=== PATIENT | female | born 1990 | race Caucasian/White ===

== ENCOUNTER 2016-11-21 13:42 | Outpatient (CLI) | payer MEDICAID, OTHER ==
[~2016-11-21] VITALS: Ht 154.9 cm; Wt 85.5 kg
[2016-11-21 14:12] VITALS: Ht 154.9 cm; Wt 85.5 kg
[2016-11-21] MEDS ORDERED: CALC600T11 PO (14:12)
[2016-11-21] MEDS ORDERED: PRENAT PO (14:12)
[2016-11-21 14:13] VITALS: BP 118/64; PULSE 88; RESP 18
--- NOTE | 2016-11-21 14:53 | RADRPT ---
PROCEDURE: US OB biophysical profile. CLINICAL INDICATION: decreased movements, status post fall TECHNIQUE: Multiple sonographic images of the pelvis were obtained. The images were reviewed on a PACS workstation. COMPARISON: No prior studies are available for comparison. FINDINGS: There is a single viable intrauterine gestation. Cardiac activity is present with 148 beats per min [place]. There is a vertex presentation. The placenta is anterior. There is no evidence of placental abruption. There is a normal amount of amniotic fluid with an MALORIE = 9.3 cm. Biophysical profile: movement 2/2 tone 2/2. breathing 2/2 MALORIE 2/2 Total 03/26 RPTAT: AA . IMPRESSION: Normal biophysical profile. . .Eyal Neumann MD, Date Time Electronically viewed and signed by .Eyal Neumann MD, MD on 11/21/2016 14:52 .S/
--- NOTE | 2016-11-21 15:12 | TRIAGE ---
OB Triage Datetime Report Generated by CPN: 11/21/2016 15:11 Datetime: 11/21/2016 14:37 Stage of : OB Triage Maternal Assessment Level of Consciousness: Fully Conscious Labor Evaluation Frequency: NONE Monitor Mode: External Resting Tone [place]: Relaxed Heart Rate FHR Baseline Rate: 145 Monitor Mode: External US Variability: Moderate 6-25 bpm Accelerations: 15X15 Decelerations: None Pain Assessment Pain Scale: 0 Pain Presence: None/Denies Pain Type: N/A Pain Goal: 3 Vaginal Exam Membrane Status: Intact Vaginal Bleeding: None Datetime: 11/21/2016 14:36 Comments: monitors off for ordered U/S. Datetime: 11/21/2016 14:10 Assessment Type: Triage Maternal Assessment Level of Consciousness: Fully Conscious DTR's/Clonus: DTRs 2+; No Clonus Headache: Denies Blurred Vision: No Respiratory Effort: Unlabored; Regular Rhythm; Equal Expansion Breath Sounds, Left: Clear and Equal Breath Sounds, Right: Clear and Equal Nausea/Vomiting: Denies RUQ Epigastric Pain: Denies Lower Extremities Edema: None Degree: None Upper Extremities Edema: None Degree: None Facial Edema: None Fall Risk Assessment History of Falling: (0) No Secondary Diagnosis: (0) No Ambulatory Aid: (0) Bedrest/Nurse Assist IV Therapy: (0) No Gait: (0) Normal/Bedrest/Immobile Mental Status: (0) Oriented to Own Ability Fall Score: 0 Fall Risk Score Definition: No Risk: No action required Datetime: 11/21/2016 14:08 Time of Arrival: 11/21/2016 13:32 EGA: 26.2 Arrived By: Ambulatory Arrived From: Office Chief Complaint: pt sent in to eval for fall 2 days ago. Movement: Present Contractions: Denies/Absent Rupture of Membranes: Denies Vaginal Bleeding: None Vaginal Discharge: Denies Recent Sexual Intercouse: Denies Abdominal Trauma: Fall Patient Complaints: None Time Provider Notified: 11/21/2016 13:45 Provider Notified: KATHY Initial Plan: EFM, BPP Datetime: 11/21/2016 14:05 Monitor Mode: External Monitor Mode: External US
--- NOTE | 2016-11-21 15:33 | QN ---
Documentation Comment 26-year-old with IUP at 26 weeks and 2 days with care with Dr. Chowdhury presented status post fall 2 days ago. Patient was about to ride the car however the car moved and the patient landed on her side to the ground. She denied any direct trauma to her abdomen. She denied any vaginal bleeding, uterine contractions or decreased movement. This incident happened 2 days ago. She was seen in the office today and was referred to labor and delivery for evaluation. Patient currently does not have any complaint. Physical examination: General appearance: Alert and oriented 4 patient does not appear to be in any acute distress. Abdomen: Soft, gravid, nontender, no rebound tenderness, fundal height consistent with gestational age NST: Category 1 and appropriate for gestational age BPP: 88 No contraction the monitor seen Patient had been observed in triage for a couple hours. No complaint. No bleeding. Physical examination abdominal exam completely benign. PROCEDURE: US OB biophysical profile. CLINICAL INDICATION: decreased movements, status post fall TECHNIQUE: Multiple sonographic images of the pelvis were obtained. The images were reviewed on a PACS workstation. COMPARISON: No prior studies are available for comparison. FINDINGS: There is a single viable intrauterine gestation. Cardiac activity is present with 148 beats per minute. There is a vertex presentation. The placenta is anterior. There is no evidence of placental abruption. There is a normal amount of amniotic fluid with an MALORIE = 9.3 cm. Biophysical profile: movement 2/2 tone 2/2. breathing 2/2 MALORIE 2/2 Total 03/26 RPTAT: AA . IMPRESSION: Normal biophysical profile. . Assessment: IUP at 26 weeks and 2 days Status post fall 2 days ago No evidence of abruption, pre-problem, labor heart tones category 1. testing reassuring. BPP 03/26 Patient discharged home with a strict labor precaution and kick count and abruption precaution next Patient was advised to return to labor and delivery if she has any vaginal bleeding, leakage of fluid, contraction, decreased movement or any other concern immediately to triage She was also advised to be seen in her clinic that she has care in 2 days for follow-up. Patient verbalized understanding all above discussion and had no questions. ANJUM MICHEL MD Nov 21, 2016 15:33
== END 2016-11-21 15:22 | disposition home or self-care (01) ==
LOC: OBT 13:42 → L-D 13:45 → OBT 15:22
PROVIDERS: ATTEND Obstetrics & Gynecology
DX: O36.8120 Decreased fetal movements, second trimester, not applicable or unspecified (principal); W18.39XA Other fall on same level, initial encounter; Y92.410 Unspecified street and highway as the place of occurrence of the external cause; Z3A.26 26 weeks gestation of pregnancy
CPT/HCPCS: 76818; Z7500; G0463

== ENCOUNTER 2017-02-07 13:14 | Outpatient (CLI) | payer MEDICAID, OTHER ==
[~2017-02-07] VITALS: Ht 165.1 cm; Wt 88.4 kg
[~2017-02-07 13:14] MED LIST: CALC600T11 PO; PRENAT PO
[2017-02-07 13:26] VITALS: BP 122/75; RESP 16; Ht 165.1 cm; Wt 88.4 kg
[2017-02-07 14:06] LABS: ADD SCAN DIFF NO
[2017-02-07 14:09] LABS: ABNORMAL IP MESSAGE 1; BASOPHILS % 0.2 % (0.0-2.0); EOSINOPHILS # 0.2 10^3/ul (0.0-0.5); EOSINOPHILS % 2.2 % (0.0-7.0); HEMATOCRIT 33.2 % (37.0-47.0); HEMOGLOBIN 11.1 g/dl (12.0-16.0); LYMPHOCYTES # 2.3 10^3/ul (0.8-2.9); LYMPHOCYTES % 28.6 % (15.0-51.0); MEAN CORPUSCULAR HEMOGLOBIN 28.2 pg (29.0-33.0); MEAN CORPUSCULAR HGB CONC 33.4 g/dl (32.0-37.0); MEAN CORPUSCULAR VOLUME 84.5 fl (82.0-101.0); MONOCYTE # 0.7 10^3/ul (0.3-0.9); MONOCYTES % 8.9 % (0.0-11.0); NEUTROPHIL # 4.8 10^3/ul (1.6-7.5); NEUTROPHILS % 59.2 % (39.0-77.0); PLATELET COUNT 135 10^3/UL (140-415); RED BLOOD COUNT 3.93 10^6/ul (4.20-5.40); RED CELL DISTRIBUTION WIDTH 13.4 % (11.5-14.5); WHITE BLOOD COUNT 8.2 10^3/ul (4.8-10.8)
--- NOTE | 2017-02-07 14:13 | RADRPT ---
PROCEDURE: US biophysical profile. CLINICAL INDICATION: induced hypertension. TECHNIQUE: Multiple sonographic images of the uterus were obtained. The images were revi ewed on a PACS workstation. COMPARISON: 11/21/2016. FINDINGS: There is a single live intrauterine gestation. heart rate is 159 beats per minute. The position is cephalic. The placenta is anterior grade II with no abruption or previa. The MALORIE is 9.4 cm. (Normal = 5-20 cm.) Breathing Movement: 2 Gross Body Movement: 2 Tone: 2 Qualitative Amniotic Fluid Volume: 2 TOTAL: 8 IMPRESSION: 1. The biophysical score is 8/8. RPTAT: QQ .Nelson Briones MD, MD Date Time Electronically viewed and signed by .Nelson Briones MD, MD on 02/07/2017 14:12 .R/
[2017-02-07 14:22] LABS: ADD UMIC YES; UR ASCORBIC ACID NEGATIVE (NEGATIVE); UR BILIRUBIN (Dip) NEGATIVE (NEGATIVE); UR BLOOD (Dip) NEGATIVE (NEGATIVE); UR CLARITY SLIGHTLY CLOUDY (CLEAR); UR COLOR YELLOW (YELLOW); UR GLUCOSE (Dip) NEGATIVE (NEGATIVE); UR KETONES (Dip) NEGATIVE (NEGATIVE); UR LEUKOCYTE ESTERASE (Dip) 1+ Leu/ul (NEGATIVE); UR NITRITE (Dip) NEGATIVE (NEGATIVE); UR RBC 1 /HPF (0-5); UR SPECIFIC GRAVITY (Dip) 1.014 (1.003-1.030); UR SQUAMOUS EPITHELIAL CELL FEW /HPF (FEW); UR TOTAL PROTEIN (Dip) NEGATIVE (NEGATIVE); UR UROBILINOGEN (Dip) NEGATIVE (NEGATIVE)
[2017-02-07 14:30] LABS: ALBUMIN 3.8 g/dl (3.3-4.9); ALBUMIN/GLOBULIN RATIO 1.18; CALCIUM 9.1 mg/dl (8.4-10.2); CREATININE 0.64 mg/dl (0.44-1.00); POTASSIUM 4.5 mmol/L (3.5-5.1)
--- NOTE | 2017-02-07 14:54 | PN ---
Triage Information Date/Time 02/07/2017 Weeks of Gestation 37.3 : 1 Para: 0 Diabetes: none Hypertention: none Additional information sent in to R/O PIH because of 2 + proteinuria in clinic Objective Vital Signs Date Time Temp Pulse Resp B/P Pulse Ox O2 Delivery O2 Flow Rate FiO2 02/07/17 13:26 98.2 16 122/75 Room Air Heart Rate: 140's Heart Rate Comments FHTs R Exam long/ closed Results/Medications Result Diagram: 02/07/17 1355 02/07/17 1355 Results 24 hrs Laboratory Tests Test 02/07/17 13:55 White Blood Count 8.2 Red Blood Count 3.93 L Hemoglobin 11.1 L Hematocrit 33.2 L Mean Corpuscular Volume 84.5 Mean Corpuscular Hemoglobin 28.2 L Mean Corpuscular Hemoglobin Concent 33.4 Red Cell Distribution Width 13.4 Platelet Count 135 L Mean Platelet Volume 14.0 H Neutrophils % 59.2 Lymphocytes % 28.6 Monocytes % 8.9 Eosinophils % 2.2 Basophils % 0.2 Nucleated Red Blood Cells % 0.0 Neutrophils # 4.8 Lymphocytes # 2.3 Monocytes # 0.7 Eosinophils # 0.2 Basophils # 0.0 Nucleated Red Blood Cells # 0.0 Urine Color YELLOW Urine Clarity SLIGHTLY CLOUDY A Urine pH 7.0 Urine Specific [place] 1.014 Urine Ketones NEGATIVE Urine Nitrite NEGATIVE Urine Bilirubin NEGATIVE Urine Urobilinogen NEGATIVE Urine Leukocyte Esterase 1+ H Urine Microscopic RBC 1 Urine Microscopic WBC 3 Urine Squamous Epithelial Cells FEW Urine Hemoglobin NEGATIVE Urine Glucose NEGATIVE Urine Total Protein NEGATIVE Sodium Level 135 Potassium Level 4.5 Chloride Level 106 Carbon Dioxide Level 25 Anion Gap 9 Blood Urea Nitrogen 5 L Creatinine 0.64 Glucose Level 79 Uric Acid 3.2 Calcium Level 9.1 Total Bilirubin 0.0 L Direct Bilirubin 0.00 Indirect Bilirubin 0.0 Aspartate Amino Transf (AST/SGOT) 19 Alanine Aminotransferase (ALT/SGPT) 25 Alkaline Phosphatase 177 H Total Protein 7.0 Albumin 3.8 Globulin 3.20 Albumin/Globulin Ratio 1.18 Medications None Imaging Results BPP 03/26 Assessment/Plan ALL labs are normal NO proteinuria CMP C/W CBC nl BPs are WNL and C/W blood pressures will follow outpatient DIOMEDES CLARKE MD Feb 07, 2017 14:54
--- NOTE | 2017-02-07 15:08 | TRIAGE ---
OB Triage Datetime Report Generated by CPN: 02/07/2017 15:08 Datetime: 02/07/2017 14:59 Patient Complaints: None Datetime: 02/07/2017 13:30 Stage of : OB Triage Assessment Type: Triage Chief Complaint: SENT FROM CLINIC FOR PROTEINURIA AND ELEVATED B/P Time Provider Notified: 02/07/2017 13:29 Provider Notified: DR. CHAVEZ Initial Plan: EFMX2, CALL MD Maternal Assessment Level of Consciousness: Fully Conscious DTR's/Clonus: DTRs 2+; No Clonus Headache: Denies Blurred Vision: No Respiratory Effort: Unlabored; Regular Rhythm; Equal Expansion Breath Sounds, Left: Clear and Equal Breath Sounds, Right: Clear and Equal Nausea/Vomiting: Denies RUQ Epigastric Pain: Denies Lower Extremities Edema: None Degree: None Upper Extremities Edema: None Degree: None Facial Edema: None Temperature Route: Oral Fall Risk Assessment History of Falling: (0) No Secondary Diagnosis: (0) No Ambulatory Aid: (0) Bedrest/Nurse Assist IV Therapy: (0) No Gait: (0) Normal/Bedrest/Immobile Mental Status: (0) Oriented to Own Ability Fall Score: 0 Fall Risk Score Definition: No Risk: No action required Labor Evaluation Frequency: 0 Monitor Mode: External Heart Rate FHR Baseline Rate: 145 Monitor Mode: External US Variability: Moderate 6-25 bpm Accelerations: 15X15 Decelerations: None Category: Category I Pain Assessment Pain Scale: 0 Pain Presence: None/Denies Pain Type: N/A Datetime: 02/07/2017 13:29 Arrived By: Ambulatory Arrived From: Office Chief Complaint: SENT FROM CLINIC FOR ELEVATED B/P Movement: Present Rupture of Membranes: Denies Vaginal Bleeding: None Vaginal Discharge: Denies Recent Sexual Intercouse: Denies Abdominal Trauma: Not Applicable Patient Complaints: Other Initial Plan: EFMX2, CALL ,MD Datetime: 11/21/2016 14:10 Fall Score: 0 Fall Risk Score Definition: No Risk: No action required Datetime: 11/21/2016 14:08 EGA: 26.2
--- NOTE | 2017-02-07 15:10 | TRIAGE ---
OB Triage Datetime Report Generated by CPN: 02/07/2017 15:09 Datetime: 02/07/2017 13:30 Time of Arrival: 02/07/2017 13:08 EGA: 37.3 Movement: Present Rupture of Membranes: Denies Vaginal Bleeding: None Vaginal Discharge: Denies Recent Sexual Intercouse: Denies Abdominal Trauma: Not Applicable Patient Complaints: None Fall Score: 0 Fall Risk Score Definition: No Risk: No action required
== END 2017-02-07 15:05 | disposition home or self-care (01) ==
LOC: OBT 13:14 → L-D 13:15 → OBT 15:05
PROVIDERS: ATTEND Obstetrics & Gynecology
DX: O26.893 Other specified pregnancy related conditions, third trimester (principal); Z3A.37 37 weeks gestation of pregnancy
CPT/HCPCS: 36415; 76818; 80053; 81001; 84560; 85025; Z7500; G0463

== ENCOUNTER 2017-02-16 08:44 | Outpatient (CLI) | payer OTHER ==
[~2017-02-16] VITALS: Ht 157.5 cm; Wt 88.1 kg
[2017-02-16 08:59] VITALS: BP 116/75; PULSE 94; RESP 18; Ht 157.5 cm; Wt 88.1 kg
--- NOTE | 2017-02-16 11:06 | RADRPT ---
PROCEDURE: OB ultrasound for biophysical profile CLINICAL INDICATION: Contractions TECHNIQUE: Multiple sonographic images of the pelvis were obtained. Transabdominal views of the g ravid uterus are available for review. The images were reviewed on a PACS workstation. COMPARISON: Biophysical profile dated 02/07/2017 FINDINGS: breathing movement = 2/2 tone = 2/2 motion = 2/2 MALORIE = 2/2 MALORIE = 8.4 cm Single live intrauterine with cardiac activity of 152 bpm. position is cephal ic. The placenta is anterior. IMPRESSION: 1. Single live intrauterine gestation. 2. Biophysical profile = 03/26. 3. MALORIE = 8.4 cm. RPTAT: HH .Michelle Gayle MD, Date Time Electronically viewed and signed by .Michelle Gayle MD, on 02/16/2017 11:05 .G/
[2017-02-16] MEDS ORDERED: LACTATED RINGER'S 1,000 ML IV ONE (13:00)
[2017-02-16] MEDS ORDERED: LACTATED RINGER'S 1,000 ML IV SCH (13:00)
--- NOTE | 2017-02-16 14:31 | PN ---
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 Feb 16, 2017 14:31
--- NOTE | 2017-02-16 14:32 | TRIAGE ---
OB Triage Datetime Report Generated by CPN: 02/16/2017 14:32 Datetime: 02/16/2017 14:00 Stage of : OB Triage Maternal Assessment Level of Consciousness: Fully Conscious Labor Evaluation Frequency: 4-9 Monitor Mode: External Duration (sec)2399: 60-120 Quality: Mild Pattern: Normal: <= 5 Contractions in 10 Minutes Resting Tone [place]: Relaxed Heart Rate FHR Baseline Rate: 125 Monitor Mode: External US Variability: Moderate 6-25 bpm Accelerations: 15X15 Decelerations: None Pain Assessment Pain Scale: 3 Pain Presence: Intermittent Pain Type: Cramping Pain Location: Abdomen Pain Goal: 3 Pain Relief Measures: Comfort Measures Membrane Status: Intact Vaginal Bleeding: None Datetime: 02/16/2017 12:58 Stage of : OB Triage Labor Evaluation Frequency: 3-5 Monitor Mode: External Duration (sec)2399: 90-100 Quality: Mild Pattern: Normal: <= 5 Contractions in 10 Minutes Resting Tone [place]: Relaxed Heart Rate FHR Baseline Rate: 125 Monitor Mode: External US Variability: Moderate 6-25 bpm Accelerations: 15X15 Decelerations: None Category: Category I Pain Assessment Pain Scale: 3 Pain Presence: Intermittent Pain Type: Cramping Pain Location: Abdomen Pain Relief Measures: Comfort Measures Datetime: 02/16/2017 12:30 Vaginal Exam Dilatation (cms): 0.5 Effacement (%): 40 Station: -3 Exam By: JOVANNA Solomon Vaginal Bleeding: None Cervix, Consistency: Firm Cervix, Position: Posterior Datetime: 02/16/2017 09:53 Stage of : OB Triage Labor Evaluation Frequency: 2-8 Monitor Mode: External Duration (sec)2399: 90-150 Quality: Moderate Resting Tone [place]: Relaxed Heart Rate FHR Baseline Rate: 135 Monitor Mode: External US Variability: Moderate 6-25 bpm Accelerations: 15X15 Decelerations: None Pain Assessment Pain Scale: 5 Pain Presence: Intermittent Pain Type: Cramping Pain Location: Abdomen Pain Goal: 3 Pain Relief Measures: Comfort Measures Membrane Status: Intact Vaginal Bleeding: None Datetime: 02/16/2017 09:05 Vaginal Exam Dilatation (cms): 0.5 Effacement (%): 40 Station: -3 Exam By: JOVANNA. O Vaginal Bleeding: None Cervix, Consistency: Firm Cervix, Position: Posterior Datetime: 02/16/2017 08:56 Assessment Type: Triage Maternal Assessment Level of Consciousness: Fully Conscious DTR's/Clonus: DTRs 2+; No Clonus Headache: Denies Blurred Vision: No Respiratory Effort: Unlabored; Regular Rhythm; Equal Expansion Breath Sounds, Left: Clear and Equal Breath Sounds, Right: Clear and Equal Nausea/Vomiting: Denies RUQ Epigastric Pain: Denies Lower Extremities Edema: None Degree: None Upper Extremities Edema: None Degree: None Facial Edema: None Fall Risk Assessment History of Falling: (0) No Secondary Diagnosis: (0) No Ambulatory Aid: (0) Bedrest/Nurse Assist IV Therapy: (0) No Gait: (0) Normal/Bedrest/Immobile Mental Status: (0) Oriented to Own Ability Fall Score: 0 Fall Risk Score Definition: No Risk: No action required Datetime: 02/16/2017 08:53 Time of Arrival: 02/16/2017 08:40 EGA: 38.5 Arrived By: Ambulatory Arrived From: Home Chief Complaint: C/O UC'S SINCE THIS AM Movement: Present Contractions: Irregular Rupture of Membranes: Denies Vaginal Bleeding: None Vaginal Discharge: Denies Recent Sexual Intercouse: Denies Abdominal Trauma: Not Applicable Patient Complaints: Contractions; Cramping; Back Pain Provider Notified: KATHY Initial Plan: NST/SVE/BPP Datetime: 02/16/2017 08:51 Monitor Mode: External Monitor Mode: External US Datetime: 02/07/2017 13:30 EGA: 37.3 Fall Score: 0 Fall Risk Score Definition: No Risk: No action required Datetime: 11/21/2016 14:10 Fall Score: 0 Fall Risk Score Definition: No Risk: No action required Datetime: 11/21/2016 14:08 EGA: 26.2
== END 2017-02-16 15:10 | disposition home or self-care (01) ==
LOC: OBT 08:44 → L-D 08:44 → OBT 15:10
PROVIDERS: ATTEND Obstetrics & Gynecology
DX: O62.9 Abnormality of forces of labor, unspecified (principal); Z3A.38 38 weeks gestation of pregnancy
CPT/HCPCS: 36415; 76818; 96360; J7120; Z7500; G0463

== ENCOUNTER 2017-02-19 06:05 | Inpatient (IN) | payer OTHER ==
[~2017-02-19] VITALS: Ht 165.1 cm; Wt 87.1 kg
[2017-02-19 06:27] VITALS: BP 127/81; PULSE 89; RESP 18
[2017-02-19] MEDS ORDERED: LACTATED RINGER'S 1,000 ML IV SCH (06:34)
[2017-02-19] MEDS ORDERED: IBUPROFEN 600 MG TAB PO PRN (07:00)
[2017-02-19] MEDS ORDERED: MINERAL OIL LIGHT 10 ML VIAL TOP ONE ×2 (07:00→16:00)
[2017-02-19] MEDS ORDERED: METHYLERGONOVINE 0.2 MG INJ IM PRN (07:00)
[2017-02-19] MEDS ORDERED: CARBOPROST 250 MCG INJ IM PRN (07:00)
[2017-02-19] MEDS ORDERED: LIDOCAINE 1% (MPF) 30 ML INJ INJ PRN (07:00)
[2017-02-19] MEDS ORDERED: OXYTOCIN 30 UNITS/LR 500 ML IV SCH ×2 (07:00)
[2017-02-19] MEDS ORDERED: BUTORPHANOL 2 MG INJ IV PRN (07:00)
[2017-02-19] MEDS ORDERED: MISOPROSTOL 200 MCG TAB PR PRN (07:00)
[2017-02-19] MEDS ORDERED: OXYTOCIN 30 UNITS/LR 500 ML IV PRN (07:00)
--- NOTE | 2017-02-19 08:08 | TRIAGE ---
OB Triage Datetime Report Generated by CPN: 02/19/2017 08:07 Datetime: 02/19/2017 08:02 Assessment Type: Admission Assessment Vaginal Bleeding: None Maternal Assessment Level of Consciousness: Fully Conscious DTR's/Clonus: DTRs 2+; No Clonus Headache: Denies Blurred Vision: No Respiratory Effort: Unlabored; Regular Rhythm; Equal Expansion Breath Sounds, Left: Clear and Equal Breath Sounds, Right: Clear and Equal Nausea/Vomiting: Denies RUQ Epigastric Pain: Denies Lower Extremities Edema: None Degree: None Upper Extremities Edema: None Degree: None Facial Edema: None Fall Risk Assessment History of Falling: (0) No Secondary Diagnosis: (0) No Ambulatory Aid: (0) Bedrest/Nurse Assist IV Therapy: (0) No Gait: (0) Normal/Bedrest/Immobile Mental Status: (0) Oriented to Own Ability Fall Score: 0 Fall Risk Score Definition: No Risk: No action required Labor Evaluation Frequency: 3-6 Duration (sec)2399: 6-75 Quality: Mild Pattern: Normal: <= 5 Contractions in 10 Minutes Resting Tone [place]: Relaxed Heart Rate FHR Baseline Rate: 140 Variability: Moderate 6-25 bpm Accelerations: 15X15 Decelerations: None Category: Category I Pain Assessment Pain Scale: 8 Pain Presence: Intermittent Pain Type: Contraction Pain Location: Abdomen Pain Goal: 3 Pain Assessment Comments: MEDICATED Membrane Status: Ruptured Membranes Ruptured Date/Time: 02/19/2017 05:30 Membranes Rupture Method: Spontaneous Amniotic Fluid Color: Clear Amniotic Fluid Amount: Moderate Amniotic Fluid Odor: None Datetime: 02/19/2017 06:50 Stage of : OB Triage Labor Evaluation Frequency: 4-5 Monitor Mode: External Duration (sec)2399: 60-90 Quality: Moderate Pattern: Normal: <= 5 Contractions in 10 Minutes Resting Tone [place]: Relaxed Heart Rate FHR Baseline Rate: 140 Monitor Mode: External US FHR Baseline Changes: No Baseline Change Variability: Moderate 6-25 bpm Accelerations: 15X15 Decelerations: None Category: Category I Datetime: 02/19/2017 06:20 Time of Arrival: 02/19/2017 06:05 EGA: 39.1 Arrived By: Wheelchair Arrived From: Home Chief Complaint: c/o ucs and SROM @0530 Movement: Present Contractions: Regular Time Contractions Began: 02/18/2017 21:00 Contractions: Q5-10 Rupture of Membranes: Ruptured Vaginal Bleeding: None Vaginal Discharge: Present Recent Sexual Intercouse: Denies Abdominal Trauma: Not Applicable Patient Complaints: Contractions Time Provider Notified: 02/19/2017 06:50 Provider Notified: Dr Roman Initial Plan: EFM, SVE Datetime: 02/19/2017 06:19 Vaginal Exam Dilatation (cms): 3.0 Effacement (%): 90 Station: -2 Exam By: E Teja Membrane Status: Ruptured Amniotic Fluid Color: Clear Amniotic Fluid Amount: Moderate Amniotic Fluid Odor: Normal Vaginal Bleeding: Scant Pool: Positive Nitrazine: Positive Cervix, Consistency: Soft Cervix, Position: Posterior Presentation 'A': Cephalic Datetime: 02/19/2017 06:15 Stage of : OB Triage Maternal Assessment Level of Consciousness: Fully Conscious DTR's/Clonus: DTRs 2+; No Clonus Headache: Denies Blurred Vision: No Breath Sounds, Right: Clear and Equal Nausea/Vomiting: Present RUQ Epigastric Pain: Denies Facial Edema: None Labor Evaluation Frequency: placed Monitor Mode: External Resting Tone [place]: Relaxed Monitor Mode: External US Comments: FHT 135 Pain Assessment Pain Scale: 9 Pain Presence: Intermittent Pain Type: Contraction Pain Location: Abdomen Datetime: 02/16/2017 08:56 Fall Score: 0 Fall Risk Score Definition: No Risk: No action required Datetime: 02/16/2017 08:53 EGA: 38.5 Datetime: 02/07/2017 13:30 EGA: 37.3 Fall Score: 0 Fall Risk Score Definition: No Risk: No action required Datetime: 11/21/2016 14:10 Fall Score: 0 Fall Risk Score Definition: No Risk: No action required Datetime: 11/21/2016 14:08 EGA: 26.2
[2017-02-19 08:26] LABS: ADD SCAN DIFF NO
[2017-02-19 08:36] LABS: ABNORMAL IP MESSAGE 1; BASOPHILS % 0.3 % (0.0-2.0); EOSINOPHILS % 0.4 % (0.0-7.0); HEMATOCRIT 35.2 % (37.0-47.0); HEMOGLOBIN 11.4 g/dl (12.0-16.0); LYMPHOCYTES # 2.4 10^3/ul (0.8-2.9); LYMPHOCYTES % 24.5 % (15.0-51.0); MEAN CORPUSCULAR HEMOGLOBIN 27.3 pg (29.0-33.0); MEAN CORPUSCULAR HGB CONC 32.4 g/dl (32.0-37.0); MEAN CORPUSCULAR VOLUME 84.4 fl (82.0-101.0); MONOCYTE # 0.7 10^3/ul (0.3-0.9); MONOCYTES % 6.8 % (0.0-11.0); NEUTROPHIL # 6.6 10^3/ul (1.6-7.5); NEUTROPHILS % 67.5 % (39.0-77.0); PLATELET COUNT 143 10^3/UL (140-415); RED BLOOD COUNT 4.17 10^6/ul (4.20-5.40); RED CELL DISTRIBUTION WIDTH 14.3 % (11.5-14.5); WHITE BLOOD COUNT 9.8 10^3/ul (4.8-10.8)
[2017-02-19 08:59] LABS: ALANINE AMINOTRANSFERASE 28 IU/L (13-69); ALBUMIN 3.9 g/dl (3.3-4.9); ALBUMIN/GLOBULIN RATIO 1.21; ALKALINE PHOSPHATASE 211 IU/L (42-121); ANION GAP 21 (8-16); ASPARTATE AMINO TRANSFERASE 20 IU/L (15-46); BILIRUBIN,INDIRECT 0.2 mg/dl (0-1.1); BILIRUBIN,TOTAL 0.2 mg/dl (0.2-1.3); BLOOD UREA NITROGEN 6 mg/dl (7-20); CALCIUM 9.8 mg/dl (8.4-10.2); CARBON DIOXIDE 21 mmol/L (21-31); CHLORIDE 103 mmol/L (97-110); CREATININE 0.54 mg/dl (0.44-1.00); GLUCOSE 77 mg/dl (70-220); INR 0.9; PARTIAL THROMBOPLASTIN TIME 26.2 Sec (25.0-35.0); PROTIME 12.1 Sec (12.2-14.2); PT RATIO 0.9; SODIUM 141 mmol/L (135-144); TOTAL PROTEIN 7.1 g/dl (6.1-8.1)
[2017-02-19] MEDS: LACTATED RINGER'S 1,000 ML IV PRN ×2 (12:22→16:12)
[2017-02-19] MEDS ORDERED: FENTAnyl 2MCG/ML-ROPIV 0.2% 100 ML ONE (12:30)
[2017-02-19] MEDS ORDERED: NALOXONE (0.4 MG/ML) INJ IV PRN (13:30)
[2017-02-19] MEDS ORDERED: HYDROmorphONE 1 MG/ML SYG IV PRN ×2 (13:30)
[2017-02-19] MEDS ORDERED: FENTAnyl 2MCG/ML-ROPIV 0.2% 100 ML BAG EPI SCH (13:30)
[2017-02-19] MEDS ORDERED: ONDANSETRON 4 MG INJ IV PRN (13:30)
[2017-02-19] MEDS ORDERED: DIPHENHYDRAMINE 50 MG INJ IV PRN (13:30)
[2017-02-19] MEDS ORDERED: AMPICILLIN 2 GM/NS (PMX) 100 ML IVPB ONE (20:00)
[2017-02-19] MEDS ORDERED: GENTAMICIN 120 MG/NS (PMX) 100 ML IVPB ONE (20:00)
--- NOTE | 2017-02-19 21:18 | HP ---
Date/Time of Note Date/Time of Note DATE: 02/19/17 TIME: 21:14 OB - History Hx of Present Free Text/Dictation 27 y/o female at 38 weeks admitted because of ROM and uterine contractions started at 0530 AM Last Menstrual Period: May 10, 2016 Estimated Due Date: Feb 25, 2017 : 1 Para: 0 Care: Good Care Ultrasounds: Normal mid trimester US Obstetrical Complications: None Medical Complications: None Past Family/Social History * Past Medical, Surgical, Family and Obstetric Histories reviewed from chart. Blood Type: O+ Rubella: immune RPR/VDRL: Negative GBS Status: Negative HBsAG: Negative OB Admission Exam Vital Signs Vital Signs Vital Signs Date Time Temp Pulse Resp B/P Pulse Ox O2 Delivery O2 Flow Rate FiO2 02/19/17 06:27 98.5 89 18 127/81 Room Air Physical Exam HEENT: WNL Heart: Rhythm Normal Lungs: Clear, Equal Abdomen: WNL Extremities: Normal Reflexes: Normal Cervical Dilatation: 3cm Effacement: 75% Station: -3 Membranes: Ruptured Amniotic Fluid: Clear Heart Rate: 130's Accelerations: Accelerations Present Decelerations: No Decelerations Varibility: Moderate Contractions on Admission: >10 Minutes Apart Date/Time Contractions Began: 02/19/2017 0500 AM Frequency of Contractions: q 5 Intensity: Mild Last 72 hours Lab Results CBC & BMP 02/19/17 07:30 Liver Function Test 02/19/17 07:30 Alanine Aminotransferase (ALT/SGPT) 28 Albumin 3.9 Alkaline Phosphatase 211 H Aspartate Amino Transf (AST/SGOT) 20 Direct Bilirubin 0.00 Total Protein 7.1 OB Assessment/Plan Other Assessment: term gestation labor pains Other plan: augment labor DIOMEDES CLARKE MD Feb 19, 2017 21:18
--- NOTE | 2017-02-19 21:22 | LDN ---
Date/Time of Note Date/Time of Note DATE: 02/19/17 TIME: 21:18 Delivery Summary Vacuome extraction of a viable infant over intact perineum V/E was done because of persistent maternal temp and tachycardia Weeks of Gestation 39+ Assisted Vaginal Delivery: Vacuum Placenta Delivered: Spontaneously, Intact & Complete Meconium: none Episiotomy: No Perineal laceration: 2 Laceration repair: 2nd degree perineal laceration was repaired with 2 0 Vicryl and 2 0 Chromic Anesthesia type: Epidural Estimated blood loss: 300 Sponge & Needle done & correct: Yes All needle counts correct: Yes Any foreign bodies felt in the: No Problems: Infant Delivery Information Sex Sex: female Apgars 1 Minute: 9 5 Minute: 9 Suctioning Nose & mouth suctioned at connie: Yes Delee suction performed: No Umbilical Cord Umbilical cord with: 3 Vessels Cord presentations: no nuchal cord Cord Blood was obtained: Yes Mother & Baby Disposition Disposition Mom & Baby to Maternity; Good: Yes (mother and baby were recovered in good condition ) Mom transferred to: Other (maternity ) Baby to NICU: No DIOMEDES CLARKE MD Feb 19, 2017 21:22
[2017-02-20] VITALS: BP 118/76; PULSE 100; RESP 20
[2017-02-20] MEDS: IBUPROFEN 600 MG TAB PO SCH ×5 (00:28→23:34)
[2017-02-20] MEDS: BENZOCAINE 20% 56 ML SPRAY TOP PRN (00:28)
[2017-02-20] MEDS: WITCH HAZEL/GLYCERIN PAD PR PRN (00:28)
[2017-02-20] MEDS ORDERED: MISOPROSTOL 200 MCG TAB PR PRN (00:30)
[2017-02-20] MEDS ORDERED: LANOLIN 7 GM TUBE TOP PRN (00:30)
[2017-02-20] MEDS ORDERED: ZOLPIDEM 5 MG TAB PO PRN (00:30)
[2017-02-20] MEDS ORDERED: DIBUCAINE 1% 30 GM OINT PR PRN (00:30)
[2017-02-20] MEDS ORDERED: METHYLERGONOVINE 0.2 MG INJ IM PRN (00:30)
[2017-02-20] MEDS ORDERED: OXYTOCIN 30 UNITS/LR 500 ML IV PRN (00:30)
[2017-02-20] MEDS ORDERED: ACETAMINOPHEN/CODEINE #3 TAB PO PRN ×2 (00:30)
[2017-02-20] MEDS ORDERED: CARBOPROST 250 MCG INJ IM PRN (00:30)
[2017-02-20] MEDS: LACTATED RINGER'S 1,000 ML IV* SCH ×3 (01:05→22:53)
[2017-02-20] MEDS: AMPICILLIN/SULB 3 GM/NS (PMX) 100 ML IVPB SCH ×5 (01:05→23:34)
[2017-02-20 04:00] VITALS: BP 103/55; PULSE 84; RESP 20
[2017-02-20 06:56] LABS: ADD SCAN DIFF NO
[2017-02-20 07:02] LABS: ABNORMAL IP MESSAGE 1; BASOPHILS % 0.2 % (0.0-2.0); EOSINOPHILS # 0.1 10^3/ul (0.0-0.5); EOSINOPHILS % 0.7 % (0.0-7.0); HEMATOCRIT 28.3 % (37.0-47.0); HEMOGLOBIN 9.4 g/dl (12.0-16.0); LYMPHOCYTES # 2.6 10^3/ul (0.8-2.9); LYMPHOCYTES % 13.4 % (15.0-51.0); MEAN CORPUSCULAR HEMOGLOBIN 28.3 pg (29.0-33.0); MEAN CORPUSCULAR HGB CONC 33.2 g/dl (32.0-37.0); MEAN CORPUSCULAR VOLUME 85.2 fl (82.0-101.0); MEAN PLATELET VOLUME 13.4 fl (7.4-10.4); MONOCYTE # 1.8 10^3/ul (0.3-0.9); MONOCYTES % 9.2 % (0.0-11.0); NEUTROPHIL # 14.9 10^3/ul (1.6-7.5); NEUTROPHILS % 75.7 % (39.0-77.0); PLATELET COUNT 114 10^3/UL (140-415); RED BLOOD COUNT 3.32 10^6/ul (4.20-5.40); RED CELL DISTRIBUTION WIDTH 14.7 % (11.5-14.5); WHITE BLOOD COUNT 19.7 10^3/ul (4.8-10.8)
[2017-02-20 08:30] VITALS: BP 104/66; PULSE 77; RESP 18; RESP 19
[2017-02-20] MEDS: MAGNESIUM HYDROXIDE 30ML CUP PO SCH ×2 (09:29→20:43)
[2017-02-20] MEDS: SENNA/DOCUSATE NA (8.6MG/50MG) TAB PO SCH ×2 (09:29→20:43)
[2017-02-20 12:05] VITALS: BP 110/62; PULSE 70; RESP 19
--- NOTE | 2017-02-20 14:22 | DS ---
Date/Time of Note Date/Time of Note fome next day DATE: 02/20/17 TIME: 14:19 Obstetrical Discharge Record Final Diagnosis Final Diagnosis: Term delivered Other Final Diagnosis S/P vaginal delivery Vaginal Delivery Obstetrical Delivery: Vacuum Extraction, Laceration, Repaired Complications Augmentation: Yes Condition on Discharge Physical Assessment Last Vitals: see nurses notes Voiding: Yes Bowel Movement: Yes Breast: Soft, non-tender, Filling Fundus: Firm Abdomen and Incision: soft BS + Episiotomy: NA perineum : healing Calf Tenderness: No Patient Condition: Good DIOMEDES CLARKE MD Feb 20, 2017 14:21
[2017-02-20 15:59] VITALS: BP 115/77; PULSE 80; RESP 20
[2017-02-20 20:00] VITALS: BP 122/68; PULSE 97; RESP 20
--- NOTE | 2017-02-20 20:43 | PD.PPDC ---
[employer] Discharge Instruction Provider Information Physician Information 27 y/o female had vaginal delivery Diagnosis Final Diagnosis: S/P vaginal delivery Condition Patient Condition: Good Diet Diet: Resume Regular Diet Activity/Restrictions Activity: Normal Activity May Shower Restrictions: Nothing in the Vagina Return to Work or School: Apr 08, 2017 Follow-up Follow-up with Physician: 4, Week/Weeks (in clinic ) Return to clinic for OB Instructions: Breast Tenderness Depression DIOMEDES CLARKE MD Feb 20, 2017 20:43
[2017-02-20] MEDS ORDERED: IBUP-1542 PO (20:44)
[2017-02-21 04:00] VITALS: BP 112/63; PULSE 84; RESP 18
[2017-02-21] MEDS: IBUPROFEN 600 MG TAB PO SCH ×3 (05:46→17:33)
[2017-02-21] MEDS: AMPICILLIN/SULB 3 GM/NS (PMX) 100 ML IVPB SCH (05:46)
[2017-02-21 07:58] LABS: ADD SCAN DIFF NO
[2017-02-21 08:14] LABS: ABNORMAL IP MESSAGE 1; BASOPHILS % 0.2 % (0.0-2.0); EOSINOPHILS # 0.3 10^3/ul (0.0-0.5); HEMATOCRIT 26.8 % (37.0-47.0); HEMOGLOBIN 8.5 g/dl (12.0-16.0); LYMPHOCYTES # 2.3 10^3/ul (0.8-2.9); LYMPHOCYTES % 16.3 % (15.0-51.0); MEAN CORPUSCULAR HEMOGLOBIN 27.7 pg (29.0-33.0); MEAN CORPUSCULAR HGB CONC 31.7 g/dl (32.0-37.0); MEAN CORPUSCULAR VOLUME 87.3 fl (82.0-101.0); MEAN PLATELET VOLUME 13.1 fl (7.4-10.4); MONOCYTE # 0.8 10^3/ul (0.3-0.9); MONOCYTES % 5.4 % (0.0-11.0); NEUTROPHIL # 10.8 10^3/ul (1.6-7.5); NEUTROPHILS % 75.4 % (39.0-77.0); PLATELET COUNT 106 10^3/UL (140-415); RED BLOOD COUNT 3.07 10^6/ul (4.20-5.40); WHITE BLOOD COUNT 14.3 10^3/ul (4.8-10.8)
[2017-02-21 08:45] VITALS: BP 110/69; PULSE 75; RESP 18
[2017-02-21] MEDS ORDERED: DIPHTH/TET/ACEL PERTUSS (ADULT) 0.5 ML VIAL IM* ONE (09:00)
[2017-02-21] MEDS ORDERED: VARICELLA VACCINE LIVE/PF 1,350 UNIT/0.5 ML ML SC* ONE (09:00)
[2017-02-21] MEDS ORDERED: MEASLES,MUMPS,RUBELLA VACCINE INJ SC* ONE (09:00)
[2017-02-21] MEDS: MAGNESIUM HYDROXIDE 30ML CUP PO SCH (09:21)
[2017-02-21] MEDS: SENNA/DOCUSATE NA (8.6MG/50MG) TAB PO SCH (09:21)
[2017-02-21 16:35] VITALS: BP 123/72; PULSE 85; RESP 18
[2017-02-21] MEDS: WITCH HAZEL/GLYCERIN PAD PR PRN (17:40)
[2017-02-21] MEDS: BENZOCAINE 20% 56 ML SPRAY TOP PRN (17:40)
== END 2017-02-21 19:00 | disposition home or self-care (01) | DRG 775 ==
LOC: OBT 06:05 → L-D 06:05 → OBT 06:40 → L-D 06:40 → PP1 23:35
PROVIDERS: ADMIT Obstetrics & Gynecology; ATTEND Obstetrics & Gynecology
PROC: 10E0XZZ Delivery of Products of Conception, External Approach (ICD-10-PCS; principal; 2017-02-19)
PROC: 0KQM0ZZ Repair Perineum Muscle, Open Approach (ICD-10-PCS; 2017-02-19)
PROC: 3E033VJ Introduction of Other Hormone into Peripheral Vein, Percutaneous Approach (ICD-10-PCS; 2017-02-19)
DX: O70.1 Second degree perineal laceration during delivery (principal); Z37.0 Single live birth; Z3A.39 39 weeks gestation of pregnancy
CPT/HCPCS: 36415; 62319; 80053; 84560; 85025; 85610; 85730; 86592; 86900; 86901; 87040; 87086; 87340; 88307; 90715; 90716; 99464; G0463; J0290; J0295; J0595; J1580; J2590; J3010; J7120

== ENCOUNTER 2018-03-14 10:20 | Inpatient (IN) | END 2018-03-16 19:00 | disposition home or self-care (01) | DRG 775 ==